=== PATIENT | male | born 1995 | race Two or more races ===

== ENCOUNTER 2018-09-06 03:55 | Emergency (ER) | payer OTHER ==
[~2018-09-06] VITALS: Ht 182.9 cm; Wt 97.5 kg
[2018-09-06 04:00] VITALS: BP 126/72
--- NOTE | 2018-09-06 04:00 | NUR ---
ER Nurse Note: Pt BIBA from [place] c/o ETOH intoxication. Per EMS, pt drank too much, got in an uber with a friend and vomited in Uber. Pt has old vomit on self and clothes. Pt denies head trauma, LOC. No signs of distress. [facility].
--- NOTE | 2018-09-06 04:05 | NUR ---
ER Nurse Note: Pt cleaned and provided toothpaste. Pt stated "he wants to go home and I have a ride outside". ERMD notified and aware.
--- NOTE | 2018-09-06 04:23 | Emergency Room Report ---
History of Present Illness General Chief Complaint: Alcohol Intoxication Source: Patient, EMS Present Illness HPI Is a 23-year-old male with no medical problem. He present with chief complaint of alcohol intoxication. Has been drinking tonight and took an Uber home. In the back of the car he was vomiting so the [employer] flatbed driver pulled over and called 911. Patient complaining of some nausea still but no more vomiting. No trauma. No diarrhea. Denies any other complaint. Allergies: Coded Allergies: No Known Allergies (Unverified , 09/06/18) Patient History Past Medical History: see triage record, old chart reviewed Past Surgical History: none Pertinent Family History: none Social History: Reports: alcohol use Immunizations: other Reviewed Nursing Documentation: PMH: Agreed; PSxH: Agreed Nursing Documentation-PMH Past Medical History: No Stated History Review of Systems Eye: Denies: eye pain, blurred vision ENT: Denies: ear pain, nose congestion, throat swelling Respiratory: Denies: cough, shortness of breath Cardiovascular: Denies: chest pain, palpitations Gastrointestinal: Reports: nausea, vomiting; Denies: abdominal pain, diarrhea Musculoskeletal: Denies: back pain, joint pain Skin: Denies: rash Neurological: Denies: headache, numbness Endocrine: Denies: increased thirst, increased urine Hematologic/Lymphatic: Denies: easy bruising All Other Systems: negative except mentioned in HPI Physical Exam Vital Signs Date Time Temp Pulse Resp B/P (MAP) Pulse Ox O2 Delivery O2 Flow Rate FiO2 09/06/18 03:50 98.6 84 16 126/72 (90) 99 Room Air vitals normal Sp02 EP Interpretation: reviewed, normal General Appearance: well appearing, no apparent distress, alert Head: normocephalic, atraumatic Eyes: bilateral eye PERRL, bilateral eye EOMI ENT: hearing grossly normal, normal pharynx Neck: full range of motion, supple, no meningismus Respiratory: chest non-tender, lungs clear, normal breath sounds Cardiovascular #1: regular rate, rhythm, no murmur Gastrointestinal: normal bowel sounds, non tender, no mass, no organomegaly, no bruit, non-distended Musculoskeletal: back normal, gait/station normal, normal range of motion Psychiatric: mood/affect normal Skin: warm/dry Medical Decision Making Diagnostic Impression: Primary Impression: Acute alcoholic intoxication Qualified Codes: F10.920 - Alcohol use, unspecified with intoxication, uncomplicated ER Course Patient presents with alcohol intoxication. He felt better now. No longer vomiting. His friends is here to pick him up. We'll discharge home. No trauma to warrant x-ray or CT scan. Last Vital Signs Date Time Temp Pulse Resp B/P (MAP) Pulse Ox O2 Delivery O2 Flow Rate FiO2 09/06/18 03:50 98.6 84 16 126/72 (90) 99 Room Air Status: improved Disposition: HOME, SELF-CARE Condition: Stable Patient Instructions: Alcohol Intoxication, [id number] Additional Instructions: Abstain from drinking to excess. Follow-up with your doctor in 7 days. Return if worse. Jewel Miller MD September 06, 2018 04:23
[2018-09-06 04:30] VITALS: BP 126/72
--- NOTE | 2018-09-06 04:30 | NUR ---
ER Nurse Note: All orders completed per ERMD orders. Pt seen, treated, medically cleared for discharge by ERMD. Discharge instructions given with repeat verbazliaion by pt and friend. Instructed pt to follow up with primary care provider within one week. Pt a&ox4, VSS, no signs of distress; denies shortness of breath. Cleaned vomit off pt; provided pt with toothpaste. ID band removed. Pt left with all belongings with steady gait via own transportation with friend who is sober.
== END 2018-09-06 04:30 | disposition home or self-care (01) ==
LOC: EDBD 03:55 → EMR 04:24
DX: F10.129 Alcohol abuse with intoxication, unspecified (principal); R11.2 Nausea with vomiting, unspecified
CPT/HCPCS: 99282